=== PATIENT | female | born 1990 | race American Indian/Alaskan Native ===

== ENCOUNTER 2017-03-17 12:27 | Outpatient (CLI) | payer BC, MEDICAID ==
--- NOTE | 2017-03-17 18:25 | Ultrasound Report ---
FINAL REPORT EXAM: US OB LIMITED HISTORY: decel 40 weeks 6 days estimated gestational age TECHNIQUE: Obstetric sonographic imaging Comparison: None FINDINGS: Sonographic imaging demonstrates a single live intrauterine gestation in vertex presentation. Anterior placenta without previa documented. heart rate measures 149 beats per minute. Calculated CORNEL 14.3 centimeters. Biophysical profile score 8/8. IMPRESSION: Single live intrauterine gestation in cephalic presentation. Calculated CORNEL 14.3 centimeters. heart rate 149 beats per minute. Biophysical profile score 8/8.
--- NOTE | 2017-03-17 18:27 | Ultrasound Report ---
FINAL REPORT EXAM: US OB BPP WO NON-STRESS HISTORY: decels TECHNIQUE: Obstetrical sonographic imaging FINDINGS: Sonographic imaging demonstrates a single live intrauterine gestation in vertex presentation. Anterior placenta without previa documented. heart rate measures 149 beats per minute. Calculated CORNEL 14.3 centimeters. Biophysical profile score 8/8. IMPRESSION: Biophysical profile score 8/8.
== END 2017-03-17 15:42 | disposition home or self-care (01) ==
LOC: TRG 12:27
PROVIDERS: ATTEND Obstetrics & Gynecology
DX: O48.0 Post-term pregnancy (principal); Z3A.40 40 weeks gestation of pregnancy
CPT/HCPCS: 59025; 76815; 76819

== ENCOUNTER 2017-03-19 06:05 | Outpatient (CLI) | payer BC, MEDICAID ==
[2017-03-19 06:28] VITALS: BP 127/82
== END 2017-03-19 07:26 | disposition home or self-care (01) ==
LOC: TRG 06:05
PROVIDERS: ATTEND Obstetrics & Gynecology
DX: O46.93 Antepartum hemorrhage, unspecified, third trimester (principal); O99.333 Smoking (tobacco) complicating pregnancy, third trimester; O62.9 Abnormality of forces of labor, unspecified; O48.0 Post-term pregnancy; Z3A.40 40 weeks gestation of pregnancy

== ENCOUNTER 2017-03-19 20:38 | Inpatient (IN) | payer BC, MEDICAID ==
[2017-03-19] MEDS ORDERED: XYLOCAINE 2% INFILTRATI ONE (21:28)
[2017-03-19] MEDS ORDERED: MINERAL OIL PO PRN (21:28)
[2017-03-19] MEDS ORDERED: POLYCILLIN/NS 2 GM/100 ML 2 GM/100 ML BAG IV ONE (21:28)
[2017-03-19] MEDS ORDERED: BRETHINE SUB-Q PRN (21:28)
[2017-03-19] MEDS ORDERED: BRETHINE IVP PRN (21:28)
[2017-03-19] MEDS ORDERED: ePHEDrine SULFATE IV PRN (21:28)
--- NOTE | 2017-03-19 21:33 | History and Physical Report ---
History of Present Illness Date of examination: 03/19/17 Date of admission: 03/19/17 20:38 Chief complaint: here for IOL History of present illness: Presents for IOL for post dates. C/o having contractions. EDC Confirmation: 03/11/2017 Gestational Age: 14 3/7 weeks Past History : 1 Past Medical History: Negative Past Medical History Past Medical History Abnormal PAP: negative SANDY Exposure: negative Infertility: negative Uterine Anomaly: negative Uterine Surgery (not C/S): negative Other Gynecologic Problems: negative Medical History Comments: neg Family Hx: negative Social Hx: no e/t/d single Black Rhino Group Infection History Hx of STD: gonorrhea,chlm, trich Partner hx. of genital herpes: no Rash, Viral, or Febrile illness since last LMP? no Varicella/Chicken Pox Status: Previous Disease Genetic History Congenital Heart Defect: Mom: no Dad: no Vandana Disease: Mom: no Dad: no Thalassemia Mom: no Dad: no Neural Tube Defect Mom: no Dad: no Down's Syndrome Mom: no Dad: no Jaylan-Sachs Mom: no Dad: no Sickle Cell Disease/Trait Mom: no Dad: no Hemophilia Mom: no Dad: no Muscular Dystrophy Mom: no Dad: no Cystic Fibrosis Mom: no Dad: no Walker Chorea Mom: no Dad: no Mental Retardation Mom: no Dad: no Fragile X Mom: no Dad: no Other Genetic/Chromosomal Disorder Mom: no Dad: no Child w/other defect Mom: no Dad: no Enviromental Exposures Xray Exposure: no Medication, drug, or alcohol use since LMP: no Chemical/Other Exposure: no Exposure to Cat Liter: no Hx of Parvovirus (Fifth Disease): no Occupational Exposure to Children: none Active Medications (reviewed today): None Current Allergies (reviewed today): No known allergies Laboratory Results Past History Past Medical History: no pertinent history Past Surgical History: no surgical history 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: abnormal PAP smear - Obstetrical History Expected Date of Delivery: 03/10/17 Actual Gestation: 41 Week(s) 2 Day(s) : 1 Medications and Allergies Allergies Allergy/AdvReac Type Severity Reaction Status Date / Time No Known Allergies Allergy Unverified 03/17/17 12:43 Home Medications Medication Instructions Recorded Confirmed Last Taken Type Ferrous Sulfate [Feosol 325 MG tab] 1 tab PO TID 03/17/17 03/17/17 1 Day Ago History ~03/16/17 Pnv No.95/Ferrous Fum/Folic AC 1 tab PO DAILY 03/17/17 03/17/17 1 Day Ago History [ Vitamins Tablet] ~03/16/17 Valacyclovir HCl [Valtrex] 1 tab PO DAILY 03/17/17 03/17/17 1 Day Ago History ~03/16/17 Review of Systems All systems: negative - Vital Signs Vital signs: Vital Signs Pulse BP 77 121/80 03/19/17 20:57 03/19/17 20:57 Temp Pulse Resp BP Pulse Ox 72 121/80 99 03/19/17 21:33 03/19/17 20:57 03/19/17 21:33 - Physical Exam Lungs: Positive: Clear to auscultation, Normal air movement Genitourinary (Female): Positive: normal external genitalia, normal perenium Vulva: both: normal - Obstetrical FHR: category 1 Cervical Dilatation: 1.5 Cervical Effacement Percentage: 90 station: -1 to 0 Uterine Contraction Pattern: Regular Results Result Diagrams: 03/19/17 21:15 All other labs normal. Assessment and Plan - Patient Problems (1) 41 weeks gestation of Current Visit: Yes Status: Acute Plan to address problem: -admit -having regular contractions so will do low dose pitocin at this time -EFW 8.0lbs -serial IOL d/w pt and her mother and all questions were addressed and answered. (2) Group beta Strep positive Current Visit: Yes Status: Acute Plan to address problem: -antibx when in active labor
[2017-03-19 21:47] LABS: Hematocrit 36.5 % (30.3-42.9); Hemoglobin 12.2 gm/dl (10.1-14.3); Mean Corpuscular HGB Conc 33 % (30-34); Mean Corpuscular Hemoglobin 30 pg (28-32); Mean Corpuscular Volume 91 fl (79-97); Platelet Count 256 K/mm3 (140-440); Red Cell Distribution Width 15.1 % (13.2-15.2); White Blood Count 8.8 K/mm3 (4.5-11.0)
[2017-03-19] MEDS ORDERED: PITOCin/NS 20 UNIT/1000ML DRIP 20 UNITS/1,000 ML BAG IV SCH (22:00)
[2017-03-19] MEDS ORDERED: PITOCin/NS 30 UNIT/500ML 30 UNITS/500 ML BAG IV SCH ×2 (22:00)
[2017-03-19] MEDS: SUBLIMAZE IV PRN (22:11)
[2017-03-19] MEDS: LACTATED RINGERS 1,000 ML IV SCH (22:14)
[2017-03-20] MEDS: SUBLIMAZE IV PRN ×5 (01:25→14:09)
[2017-03-20] MEDS: POLYCILLIN/NS 1 GM/50 ML 1 GM/50 ML BAG IV SCH ×4 (01:31→21:06)
--- NOTE | 2017-03-20 06:04 | Progress Note ---
Assessment and Plan - Patient Problems (1) 41 weeks gestation of Onset Date: ~03/20/17 Current Visit: Yes Status: Acute Plan to address problem: Pt resting quietly Voicing no c/o. SVE no chg. Discussed with pt option of moving forward with Pit per protocol or taking a very short break and having diet and AM care. Pt asks for food. Will be OOB to ambulate, AM care, and diet family is going for food. P: start pitocin protocol @ 0730 Ampicillin had been started will resume dosing when in active labor, ie 4-6 cm. All questions addressed. Subjective - Subjective Date of service: 03/20/17 (pt resting Talking with aily members) Principal diagnosis: IUP @ 41w2d Patient reports: movement normal Objective - Vital Signs Vital Signs: Vital Signs - 12hr 03/19/17 03/19/17 03/19/17 20:57 21:13 21:18 Temperature Pulse Rate 77 80 68 Respiratory Rate Blood Pressure 121/80 Blood Pressure [Left] O2 Sat by Pulse 99 99 Oximetry 03/19/17 03/19/17 03/19/17 21:21 21:23 21:28 Temperature 98.3 F Pulse Rate 81 83 71 Respiratory 18 Rate Blood Pressure Blood Pressure 121/80 [Left] O2 Sat by Pulse 100 99 Oximetry 03/19/17 03/19/17 03/19/17 21:33 21:38 21:43 Temperature Pulse Rate 72 84 76 Respiratory Rate Blood Pressure Blood Pressure [Left] O2 Sat by Pulse 99 100 100 Oximetry 03/19/17 03/19/17 03/19/17 21:48 21:53 21:58 Temperature Pulse Rate 69 81 80 Respiratory Rate Blood Pressure Blood Pressure [Left] O2 Sat by Pulse 100 99 100 Oximetry 03/19/17 03/19/17 03/19/17 22:03 22:08 22:11 Temperature Pulse Rate 77 78 Respiratory 18 Rate Blood Pressure Blood Pressure [Left] O2 Sat by Pulse 100 100 Oximetry 03/19/17 03/19/17 03/19/17 22:13 22:18 22:23 Temperature Pulse Rate 78 86 73 Respiratory Rate Blood Pressure Blood Pressure [Left] O2 Sat by Pulse 100 99 97 Oximetry 03/19/17 03/19/17 03/19/17 22:28 22:33 22:38 Temperature Pulse Rate 68 76 77 Respiratory Rate Blood Pressure Blood Pressure [Left] O2 Sat by Pulse 97 98 98 Oximetry 03/19/17 03/19/17 03/19/17 22:43 22:48 22:53 Temperature Pulse Rate 80 81 74 Respiratory Rate Blood Pressure Blood Pressure [Left] O2 Sat by Pulse 98 99 99 Oximetry 03/19/17 03/19/17 03/19/17 22:58 23:03 23:08 Temperature Pulse Rate 74 77 72 Respiratory Rate Blood Pressure Blood Pressure [Left] O2 Sat by Pulse 99 100 100 Oximetry 03/19/17 03/19/17 03/19/17 23:13 23:18 23:23 Temperature Pulse Rate 75 88 76 Respiratory Rate Blood Pressure Blood Pressure [Left] O2 Sat by Pulse 100 98 98 Oximetry 03/19/17 03/19/17 03/19/17 23:28 23:33 23:38 Temperature Pulse Rate 70 81 82 Respiratory Rate Blood Pressure Blood Pressure [Left] O2 Sat by Pulse 100 100 98 Oximetry 03/19/17 03/19/17 03/19/17 23:43 23:48 23:53 Temperature Pulse Rate 84 70 68 Respiratory Rate Blood Pressure Blood Pressure [Left] O2 Sat by Pulse 99 97 99 Oximetry 03/19/17 03/19/17 03/20/17 23:55 23:58 00:03 Temperature Pulse Rate 78 73 75 Respiratory Rate Blood Pressure Blood Pressure [Left] O2 Sat by Pulse 93 100 98 Oximetry 03/20/17 03/20/17 03/20/17 00:08 00:14 00:17 Temperature Pulse Rate 74 87 72 Respiratory Rate Blood Pressure 125/75 Blood Pressure [Left] O2 Sat by Pulse 100 100 Oximetry 03/20/17 03/20/17 03/20/17 00:19 00:24 00:29 Temperature Pulse Rate 79 72 66 Respiratory Rate Blood Pressure Blood Pressure [Left] O2 Sat by Pulse 100 99 100 Oximetry 03/20/17 03/20/17 03/20/17 00:34 00:39 00:44 Temperature Pulse Rate 77 75 64 Respiratory Rate Blood Pressure Blood Pressure [Left] O2 Sat by Pulse 100 100 99 Oximetry 03/20/17 03/20/17 03/20/17 00:49 00:54 00:59 Temperature Pulse Rate 64 73 64 Respiratory Rate Blood Pressure Blood Pressure [Left] O2 Sat by Pulse 100 100 99 Oximetry 03/20/17 03/20/17 03/20/17 01:04 01:09 01:14 Temperature Pulse Rate 69 64 89 Respiratory Rate Blood Pressure Blood Pressure [Left] O2 Sat by Pulse 98 99 100 Oximetry 03/20/17 03/20/17 03/20/17 01:19 01:24 01:29 Temperature Pulse Rate 80 72 75 Respiratory Rate Blood Pressure Blood Pressure [Left] O2 Sat by Pulse 100 100 100 Oximetry 03/20/17 03/20/17 03/20/17 01:34 01:39 01:44 Temperature Pulse Rate 80 84 71 Respiratory Rate Blood Pressure Blood Pressure [Left] O2 Sat by Pulse 99 98 97 Oximetry 03/20/17 03/20/17 03/20/17 01:49 01:54 01:59 Temperature Pulse Rate 74 71 68 Respiratory Rate Blood Pressure Blood Pressure [Left] O2 Sat by Pulse 99 97 98 Oximetry 03/20/17 03/20/17 03/20/17 02:04 02:09 02:14 Temperature Pulse Rate 66 70 78 Respiratory Rate Blood Pressure Blood Pressure [Left] O2 Sat by Pulse 98 98 97 Oximetry 03/20/17 03/20/17 03/20/17 02:19 02:24 02:29 Temperature Pulse Rate 80 72 71 Respiratory Rate Blood Pressure Blood Pressure [Left] O2 Sat by Pulse 98 98 98 Oximetry 03/20/17 03/20/17 03/20/17 02:34 02:39 02:44 Temperature Pulse Rate 91 H 70 79 Respiratory Rate Blood Pressure Blood Pressure [Left] O2 Sat by Pulse 98 98 98 Oximetry 03/20/17 03/20/17 03/20/17 02:49 02:54 02:59 Temperature Pulse Rate 85 80 71 Respiratory Rate Blood Pressure Blood Pressure [Left] O2 Sat by Pulse 99 99 98 Oximetry 03/20/17 03/20/17 03/20/17 03:04 03:09 03:14 Temperature Pulse Rate 77 80 89 Respiratory Rate Blood Pressure Blood Pressure [Left] O2 Sat by Pulse 99 97 97 Oximetry 03/20/17 03/20/17 03/20/17 03:19 03:24 03:29 Temperature Pulse Rate 88 73 78 Respiratory Rate Blood Pressure Blood Pressure [Left] O2 Sat by Pulse 99 98 98 Oximetry 03/20/17 03/20/17 03/20/17 03:34 03:39 03:44 Temperature Pulse Rate 85 88 84 Respiratory Rate Blood Pressure Blood Pressure [Left] O2 Sat by Pulse 98 98 98 Oximetry 03/20/17 03/20/17 03/20/17 03:49 03:56 04:01 Temperature Pulse Rate 87 93 H 83 Respiratory Rate Blood Pressure Blood Pressure [Left] O2 Sat by Pulse 99 99 98 Oximetry 03/20/17 03/20/17 03/20/17 04:06 04:11 04:16 Temperature Pulse Rate 81 88 79 Respiratory Rate Blood Pressure Blood Pressure [Left] O2 Sat by Pulse 98 100 98 Oximetry 03/20/17 03/20/17 03/20/17 04:21 04:26 04:31 Temperature Pulse Rate 84 90 73 Respiratory Rate Blood Pressure 132/84 Blood Pressure [Left] O2 Sat by Pulse 99 100 99 Oximetry 03/20/17 03/20/17 03/20/17 04:33 04:36 04:41 Temperature 97.5 F L Pulse Rate 79 86 79 Respiratory 18 Rate Blood Pressure Blood Pressure 132/84 [Left] O2 Sat by Pulse 100 99 Oximetry 03/20/17 03/20/17 03/20/17 04:46 04:51 04:56 Temperature Pulse Rate 91 H 78 84 Respiratory Rate Blood Pressure Blood Pressure [Left] O2 Sat by Pulse 98 99 96 Oximetry 03/20/17 03/20/17 03/20/17 05:01 05:06 05:11 Temperature Pulse Rate 75 75 95 H Respiratory Rate Blood Pressure Blood Pressure [Left] O2 Sat by Pulse 98 96 97 Oximetry 03/20/17 03/20/17 03/20/17 05:16 05:21 05:26 Temperature Pulse Rate 81 67 72 Respiratory Rate Blood Pressure Blood Pressure [Left] O2 Sat by Pulse 97 98 97 Oximetry 03/20/17 03/20/17 03/20/17 05:31 05:36 05:41 Temperature Pulse Rate 71 81 72 Respiratory Rate Blood Pressure Blood Pressure [Left] O2 Sat by Pulse 97 98 97 Oximetry 03/20/17 03/20/17 03/20/17 05:45 05:46 05:51 Temperature Pulse Rate 79 85 76 Respiratory Rate Blood Pressure Blood Pressure [Left] O2 Sat by Pulse 92 99 100 Oximetry 03/20/17 05:56 Temperature Pulse Rate 83 Respiratory Rate Blood Pressure Blood Pressure [Left] O2 Sat by Pulse 98 Oximetry - Exam Breasts: deferred Cardiovascular: Regular rate Lungs: Normal air movement Abdomen: Present: normal appearance, soft. Absent: distention, tenderness Uterus: Present: normal FHR: auscultation normal, category 1 Uterine Contraction Monitor Mode: External Cervical Dilatation: 1 Cervical Effacement Percentage: 90 station: -1 Uterine Contraction Pattern: Regular Uterine Tone Measurement Phase: Resting Uterine Contraction Intensity: Mild Extremities: normal Deep Tendon Reflex Grade: Normal +2 - Labs Labs: Laboratory Results - last 24 hr 03/19/17 03/19/17 21:15 21:15 WBC 8.8 RBC 4.00 Hgb 12.2 Hct 36.5 MCV 91 MCH 30 MCHC 33 RDW 15.1 Plt Count 256 Blood Type O POSITIVE Antibody Screen Negative
[2017-03-20] MEDS: LACTATED RINGERS 1,000 ML IV SCH ×5 (08:00→20:43)
[2017-03-20] MEDS: PITOCin/NS 30 UNIT/500ML 30 UNITS/500 ML BAG IV SCH ×3 (08:52→14:43)
--- NOTE | 2017-03-20 13:32 | Progress Note ---
Assessment and Plan - Patient Problems (1) 41 weeks gestation of Onset Date: ~03/20/17 Current Visit: Yes Status: Acute (2) Spontaneous rupture of membranes Onset Date: ~03/20/17 Current Visit: Yes Status: Acute Plan to address problem: Called by RN pt reports SROM clear upon her return from voiding. SVE 2,80,-1 Internals placed Will continue pitocin Given ampicillin for GBS. Re-eval as needed. Subjective - Subjective Date of service: 03/20/17 (SROM clear fluid) Principal diagnosis: IUP @ 41w2d Patient reports: movement normal Objective - Vital Signs Vital Signs: Vital Signs - 12hr 03/20/17 03/20/17 03/20/17 01:34 01:39 01:44 Temperature Pulse Rate 80 84 71 Respiratory Rate Blood Pressure Blood Pressure [Left] O2 Sat by Pulse 99 98 97 Oximetry 03/20/17 03/20/17 03/20/17 01:49 01:54 01:59 Temperature Pulse Rate 74 71 68 Respiratory Rate Blood Pressure Blood Pressure [Left] O2 Sat by Pulse 99 97 98 Oximetry 03/20/17 03/20/17 03/20/17 02:04 02:09 02:14 Temperature Pulse Rate 66 70 78 Respiratory Rate Blood Pressure Blood Pressure [Left] O2 Sat by Pulse 98 98 97 Oximetry 03/20/17 03/20/17 03/20/17 02:19 02:24 02:29 Temperature Pulse Rate 80 72 71 Respiratory Rate Blood Pressure Blood Pressure [Left] O2 Sat by Pulse 98 98 98 Oximetry 03/20/17 03/20/17 03/20/17 02:34 02:39 02:44 Temperature Pulse Rate 91 H 70 79 Respiratory Rate Blood Pressure Blood Pressure [Left] O2 Sat by Pulse 98 98 98 Oximetry 03/20/17 03/20/17 03/20/17 02:49 02:54 02:59 Temperature Pulse Rate 85 80 71 Respiratory Rate Blood Pressure Blood Pressure [Left] O2 Sat by Pulse 99 99 98 Oximetry 03/20/17 03/20/17 03/20/17 03:04 03:09 03:14 Temperature Pulse Rate 77 80 89 Respiratory Rate Blood Pressure Blood Pressure [Left] O2 Sat by Pulse 99 97 97 Oximetry 03/20/17 03/20/17 03/20/17 03:19 03:24 03:29 Temperature Pulse Rate 88 73 78 Respiratory Rate Blood Pressure Blood Pressure [Left] O2 Sat by Pulse 99 98 98 Oximetry 03/20/17 03/20/17 03/20/17 03:34 03:39 03:44 Temperature Pulse Rate 85 88 84 Respiratory Rate Blood Pressure Blood Pressure [Left] O2 Sat by Pulse 98 98 98 Oximetry 03/20/17 03/20/17 03/20/17 03:49 03:56 04:01 Temperature Pulse Rate 87 93 H 83 Respiratory Rate Blood Pressure Blood Pressure [Left] O2 Sat by Pulse 99 99 98 Oximetry 03/20/17 03/20/17 03/20/17 04:06 04:11 04:16 Temperature Pulse Rate 81 88 79 Respiratory Rate Blood Pressure Blood Pressure [Left] O2 Sat by Pulse 98 100 98 Oximetry 03/20/17 03/20/17 03/20/17 04:21 04:26 04:31 Temperature Pulse Rate 84 90 73 Respiratory Rate Blood Pressure 132/84 Blood Pressure [Left] O2 Sat by Pulse 99 100 99 Oximetry 03/20/17 03/20/17 03/20/17 04:33 04:36 04:41 Temperature 97.5 F L Pulse Rate 79 86 79 Respiratory 18 Rate Blood Pressure Blood Pressure 132/84 [Left] O2 Sat by Pulse 100 99 Oximetry 03/20/17 03/20/17 03/20/17 04:46 04:51 04:56 Temperature Pulse Rate 91 H 78 84 Respiratory Rate Blood Pressure Blood Pressure [Left] O2 Sat by Pulse 98 99 96 Oximetry 03/20/17 03/20/17 03/20/17 05:01 05:06 05:11 Temperature Pulse Rate 75 75 95 H Respiratory Rate Blood Pressure Blood Pressure [Left] O2 Sat by Pulse 98 96 97 Oximetry 03/20/17 03/20/17 03/20/17 05:16 05:21 05:26 Temperature Pulse Rate 81 67 72 Respiratory Rate Blood Pressure Blood Pressure [Left] O2 Sat by Pulse 97 98 97 Oximetry 03/20/17 03/20/17 03/20/17 05:31 05:36 05:41 Temperature Pulse Rate 71 81 72 Respiratory Rate Blood Pressure Blood Pressure [Left] O2 Sat by Pulse 97 98 97 Oximetry 03/20/17 03/20/17 03/20/17 05:45 05:46 05:51 Temperature Pulse Rate 79 85 76 Respiratory Rate Blood Pressure Blood Pressure [Left] O2 Sat by Pulse 92 99 100 Oximetry 03/20/17 03/20/17 03/20/17 05:56 07:41 07:43 Temperature 97.3 F L Pulse Rate 83 95 H 86 Respiratory 18 Rate Blood Pressure 122/69 Blood Pressure 122/69 [Left] O2 Sat by Pulse 98 99 97 Oximetry 03/20/17 03/20/17 03/20/17 07:48 07:53 08:57 Temperature Pulse Rate 79 84 81 Respiratory Rate Blood Pressure 119/67 Blood Pressure [Left] O2 Sat by Pulse 98 97 Oximetry 03/20/17 03/20/17 03/20/17 12:01 12:04 12:06 Temperature Pulse Rate 71 86 Respiratory 20 Rate Blood Pressure 133/90 Blood Pressure [Left] O2 Sat by Pulse 98 Oximetry 03/20/17 03/20/17 03/20/17 12:09 12:14 12:19 Temperature Pulse Rate 74 63 76 Respiratory Rate Blood Pressure Blood Pressure [Left] O2 Sat by Pulse 98 99 98 Oximetry 03/20/17 03/20/17 03/20/17 12:24 12:29 12:34 Temperature Pulse Rate 73 73 65 Respiratory Rate Blood Pressure Blood Pressure [Left] O2 Sat by Pulse 98 99 98 Oximetry 03/20/17 03/20/17 03/20/17 12:39 12:44 12:49 Temperature Pulse Rate 77 80 66 Respiratory Rate Blood Pressure Blood Pressure [Left] O2 Sat by Pulse 98 98 97 Oximetry 03/20/17 03/20/17 03/20/17 12:54 12:59 13:04 Temperature Pulse Rate 68 68 67 Respiratory Rate Blood Pressure Blood Pressure [Left] O2 Sat by Pulse 98 98 97 Oximetry 03/20/17 03/20/17 03/20/17 13:09 13:14 13:23 Temperature Pulse Rate 71 85 81 Respiratory Rate Blood Pressure Blood Pressure [Left] O2 Sat by Pulse 98 98 100 Oximetry 03/20/17 13:28 Temperature Pulse Rate 79 Respiratory Rate Blood Pressure Blood Pressure [Left] O2 Sat by Pulse 100 Oximetry - Exam Breasts: deferred Cardiovascular: Regular rate Lungs: Normal air movement Abdomen: Present: normal appearance, soft. Absent: distention, tenderness Uterus: Present: normal FHR: auscultation normal, category 1 Uterine Contraction Monitor Mode: Internal Cervical Dilatation: 2 (ISE/IUPC placed) Cervical Effacement Percentage: 80 station: -1 Uterine Contraction Pattern: Regular Uterine Contraction Intensity: Moderate Extremities: normal Deep Tendon Reflex Grade: Normal +2 - Labs Labs: Laboratory Results - last 24 hr 03/19/17 03/19/17 03/19/17 21:15 21:15 21:15 WBC 8.8 RBC 4.00 Hgb 12.2 Hct 36.5 MCV 91 MCH 30 MCHC 33 RDW 15.1 Plt Count 256 RPR Nonreactive Blood Type O POSITIVE Antibody Screen Negative
[2017-03-20] MEDS ORDERED: NARCAN 2 MG/2 ML IV PRN (15:55)
[2017-03-20] MEDS ORDERED: ePHEDrine SULFATE IV PRN (15:55)
--- NOTE | 2017-03-20 15:55 | Anesthesia Consultation ---
Anesthesia Consult and Med Hx Date of service: 03/20/17 - Airway Anesthetic Teeth Evaluation: Good ROM Head & Neck: Adequate Mental/Hyoid Distance: Adequate Mallampati Class: Class II Intubation Access Assessment: Probably Good - Pre-Operative Health Status ASA Pre-Surgery Classification: ASA2 Proposed Anesthetic Plan: Epidural, Spinal - Pulmonary Hx Smoking: Yes (quit 2016) Hx Asthma: No COPD: No Hx Pneumonia: No - Cardiovascular System Hx Hypertension: No - Central Nervous System Hx Seizures: No Hx Psychiatric Problems: No - Endocrine Hx Renal Disease: No Hx End Stage Renal Disease: No Hx Hypothyroidism: No Hx Hyperthyroidism: No - Hematic Hx Anemia: No Hx Sickle Cell Disease: No - Other Systems Hx Alcohol Use: Yes
[2017-03-20] MEDS ORDERED: fentaNYL-BUPIV 2 MCG/ML-0.125% 200 MCG/100 ML BAG EPIDURAL SCH ×2 (16:00→23:45)
[2017-03-20] MEDS ORDERED: fentaNYL-BUPIV 2 MCG/ML-0.125% 200 MCG/100 ML BAG EPIDURAL ONE (16:00)
[2017-03-20] MEDS ORDERED: ZOFRAN ONE (16:34)
[2017-03-20] MEDS ORDERED: CERVIDIL VG ONE (19:00)
--- NOTE | 2017-03-20 19:01 | Event Note ---
Date: 03/20/17 Patient resting comfortably after epidural. Discussed with the patient criteria for operative delivery. Patient now with him Pitocin the increasing per protocol and we will try to get her contractions adequate and continue monitoring. All patient's questions answered
[2017-03-20] MEDS ORDERED: ANCEF/STERILE WATER 2 GM/20 ML 2 GM/20 ML SYRINGE IV NR (22:00)
[2017-03-20] MEDS ORDERED: BICITRA PO ONE (22:00)
[2017-03-20] MEDS ORDERED: LACTATED RINGERS 1,000 ML IV SCH (22:00)
[2017-03-20] MEDS ORDERED: REGLAN IV ONE (22:00)
[2017-03-20] MEDS ORDERED: PEPCID IV ONE ×2 (22:00→22:05)
[2017-03-20] MEDS ORDERED: BICITRA ONE (22:05)
[2017-03-20] MEDS ORDERED: REGLAN ONE (22:05)
--- NOTE | 2017-03-20 22:07 | Event Note ---
Date: 03/20/17 Called to see patient secondary to repeated the deep decelerations. Patient for the second time the parents deep decelerations and prolonged decelerations restarted the Pitocin. Patient cervix is 6 cm. Due to nonreassuring heart tracings and inability to continue Pitocin and remote from vaginal delivery section is indicated. Discussed indication for operative delivery with the patient and family.Patient informed the risks of the surgery include bleeding possibly bleeding heavy enough to require blood transfusion, infection possible damage to bowel bladder ureter. All questions answered. Patient agrees to proceed
[2017-03-20] MEDS ORDERED: XYLOCAINE MPF 2% ONE ×4 (22:49)
[2017-03-20] MEDS ORDERED: MORPHINE ONE ×2 (22:50→22:52)
[2017-03-20] MEDS ORDERED: WATER FOR IRRIG STERILE IR ONE (22:55)
[2017-03-20] MEDS ORDERED: NACL 0.9% IR ONE (22:55)
[2017-03-20] MEDS ORDERED: TORADOL ONE (23:02)
[2017-03-20] MEDS ORDERED: DECADRON ONE (23:11)
[2017-03-20] MEDS ORDERED: SODIUM CHLORIDE FLUSH SYRINGE 10 ML IV NR (23:45)
--- NOTE | 2017-03-20 23:55 | Operative Report ---
Operative Report Operative Report: Date of procedure: 03/20/2017 Pre-operative diagnosis: Uterine at 41 weeks, nonreassuring heart tracing mode from vaginal delivery Post-operative diagnosis: Same plus uterine fibroid Procedure name(s): Primary low transverse section Surgeon: Dimas Smith MD Loader Operator Supervisor: Anesthesia: Epidural EBL: 600 mL Complications: None Findings: Patient with normal tubes and ovaries bilaterally had a posterior myoma near fundus approximately 3 and half centimeters in diameter. Female infant weight 8 lbs. 7 oz. Apgars 8 at 1 minute and 9 at 5 minutes Specimen(s): None Procedure: The patient was brought to the operating room. Epidural dosed adequate level. She was then placed in left lateral tilt. Prepped and draped in the usual sterile manner. After testing for adequate anesthesia level, a Pfannenstiel incision was made. This incision was taken down to the fascia. The fascia was then nicked in the midline. This incision was extended out laterally with Gonzalez scissors. The fascia was then sharply and bluntly from the underlying rectus muscles. The rectus muscles were bluntly and sharply . The peritoneum was then entered with the dye machine operator's fingers. This incision was spread vertically with care not to damage the bladder below. The bladder flap was then formed sharply and bluntly with Metzenbaum scissors. The Randal self-retaining tractor was then placed without any difficulty. A transverse incision was made in lower uterine segment. This incision was extended laterally with the operators fingers. The amniotic sac was then entered bluntly with the dye machine operator's fingers. The infant was delivered from the vertex position. Bulb suction on the mother's abdomen. Cord was double clamped and cut. The was then passed to the nursery personnel who were in attendance. The above scores were given by the nursery personnel. The placenta was then bluntly removed. The uterus was then externalized and wiped clean the remaining products. The uterine incision was closed in layers. The first incision was closed in a locking manner using 0 Vicryl. This was followed by imbricating stitch also with 0 Vicryl. This closure was hemostatic. The bladder flap was copiously irrigated and found to be hemostatic. The pelvis was copiously irrigated and found to be hemostatic. The uterus was then placed back to the patient's abdomen. The retractors were removed. The rectus muscles were inspected and found to be hemostatic. The fascia was then closed in a running manner using 0 Vicryl. This incision was hemostatic irrigation Bovie. The skin was reapproximated with 4-0 Vicryl subcuticularly. The patient tolerated procedure well. Her urine was clear. The infant was admitted to the well baby nursery. The patient was accompanied to recovery room in good condition. Instrument count correct 3.
[2017-03-20] MEDS ORDERED: PHENERGAN PR PRN (23:58)
[2017-03-20] MEDS ORDERED: MORPHINE IV PRN (23:58)
[2017-03-20] MEDS ORDERED: PHENERGAN PO PRN (23:58)
[2017-03-20] MEDS ORDERED: NARCAN 0.4 MG/1 ML IV PRN (23:58)
[2017-03-20] MEDS ORDERED: ZOFRAN IV PRN (23:58)
--- NOTE | 2017-03-20 23:58 | Post Anesthesia Evaluation ---
- Post Anesthesia Evaluation Patient Participated: Yes Airway Patent: Yes Stable Respiratory Function: Yes Nausea/Vomiting: No Temp > 96.8F: Yes Pain Manageable: Yes Adequeate Hydration: Yes Anesthesia Complications: No
[2017-03-21] MEDS ORDERED: TUCKS PAD TP PRN (01:20)
[2017-03-21] MEDS ORDERED: SODIUM CHLORIDE FLUSH SYRINGE 10 ML IV NR (01:20)
[2017-03-21] MEDS ORDERED: MYLICON PO PRN (01:20)
[2017-03-21] MEDS ORDERED: ZOFRAN IV PRN (01:20)
[2017-03-21] MEDS ORDERED: D5LR 1,000 ML IV SCH (01:20)
[2017-03-21] MEDS ORDERED: PITOCin/NS 20 UNIT/1000ML DRIP 20 UNITS/1,000 ML BAG IV SCH (01:20)
[2017-03-21] MEDS ORDERED: NARCAN 0.4 MG/1 ML IV PRN (01:20)
[2017-03-21] MEDS ORDERED: MILK OF MAGNESIA PO PRN (01:20)
[2017-03-21] MEDS ORDERED: LANSINOH TP PRN (01:20)
[2017-03-21] MEDS ORDERED: ANCEF/NS 1 GM/50 ML 1 GM/50 ML BAG IV SCH (01:20)
[2017-03-21] MEDS: TORADOL IV SCH ×3 (02:52→16:21)
[2017-03-21] MEDS: ceFAZolin 1 GM in NACL 0.9% 20 ML IV SCH ×2 (05:33→15:34)
[2017-03-21] MEDS ORDERED: BOOSTRIX IM ONE (06:00)
--- NOTE | 2017-03-21 08:08 | Progress Note ---
Assessment and Plan patient doing well <12h postop; lochia small, dressing D&I, clear yellow urine draining to BSB, VSSAF (b/p 130's/80's), postop H&H due @ 1200. Continue postop pathway. Encouraged on demand. - Patient Problems (1) delivery delivered Current Visit: Yes Status: Acute Subjective - Subjective Date of service: 03/21/17 Principal diagnosis: postop day #1 s/p primary c/s Patient reports: pain well controlled, no flatus, no nauseated [place]: doing well, nursing well Objective - Vital Signs Latest vital signs: Vital Signs Temp Pulse Resp BP BP Pulse Ox 03/21/17 04:10 98.1 F 102 H 20 135/82 03/21/17 01:45 97.9 F 79 18 134/83 98 03/21/17 01:00 83 21 135/77 96 03/21/17 00:45 80 30 H 130/75 97 03/21/17 00:30 80 22 131/84 99 03/21/17 00:15 79 17 135/80 100 03/21/17 00:00 75 19 137/77 99 03/20/17 23:55 73 19 134/79 99 03/20/17 23:52 98.7 F 76 19 134/80 99 03/20/17 22:16 100 H 100 03/20/17 22:11 86 100 03/20/17 22:06 85 100 03/20/17 22:01 86 100 03/20/17 21:56 80 100 03/20/17 21:55 80 130/77 03/20/17 21:51 71 100 03/20/17 21:46 75 100 03/20/17 21:41 74 100 03/20/17 21:36 80 100 03/20/17 21:31 80 100 03/20/17 21:26 67 100 03/20/17 21:25 65 131/69 03/20/17 21:21 85 100 03/20/17 21:16 86 100 03/20/17 21:11 77 100 03/20/17 21:06 72 100 03/20/17 21:01 86 100 03/20/17 20:56 73 100 03/20/17 20:54 76 136/78 03/20/17 20:51 99 H 100 03/20/17 20:46 83 100 03/20/17 20:41 89 100 03/20/17 20:36 71 100 03/20/17 20:31 73 100 03/20/17 20:26 77 100 03/20/17 20:25 71 121/65 03/20/17 20:21 70 100 03/20/17 20:16 71 100 03/20/17 20:11 70 100 03/20/17 20:06 86 99 03/20/17 20:01 76 100 03/20/17 19:56 86 100 03/20/17 19:54 74 116/60 03/20/17 19:51 91 H 100 03/20/17 19:47 68 118/61 03/20/17 19:46 71 100 03/20/17 19:42 98.6 F 78 18 118/61 100 03/20/17 19:41 75 100 03/20/17 19:36 69 100 03/20/17 19:31 69 100 03/20/17 19:26 71 100 03/20/17 19:24 67 129/72 03/20/17 19:21 70 100 03/20/17 19:16 69 100 03/20/17 19:11 71 100 03/20/17 19:06 68 100 03/20/17 19:01 69 100 03/20/17 18:56 85 100 03/20/17 18:55 75 124/70 03/20/17 18:51 77 100 03/20/17 18:46 67 100 03/20/17 18:43 99.1 F 03/20/17 18:41 91 H 100 03/20/17 18:36 83 100 03/20/17 18:31 82 100 03/20/17 18:26 73 100 03/20/17 18:24 77 128/73 03/20/17 18:21 74 100 03/20/17 18:16 77 99 03/20/17 18:11 71 99 03/20/17 18:06 70 99 03/20/17 18:01 70 100 03/20/17 17:56 77 100 03/20/17 17:55 70 136/81 03/20/17 17:51 71 98 03/20/17 17:46 75 100 03/20/17 17:41 71 99 03/20/17 17:36 70 100 03/20/17 17:31 71 100 03/20/17 17:26 90 100 03/20/17 17:24 70 145/82 03/20/17 17:22 73 140/80 03/20/17 17:21 78 100 03/20/17 17:20 74 138/80 03/20/17 17:18 84 142/81 03/20/17 17:16 73 143/82 98 03/20/17 17:14 67 148/78 03/20/17 17:12 68 146/79 03/20/17 17:11 70 100 03/20/17 17:10 68 148/82 03/20/17 17:08 86 147/85 03/20/17 17:06 89 145/87 100 03/20/17 17:04 81 142/83 03/20/17 17:02 72 135/79 03/20/17 17:01 71 100 03/20/17 17:00 71 139/80 03/20/17 16:58 69 140/77 03/20/17 16:56 71 139/78 99 03/20/17 16:54 74 132/76 03/20/17 16:52 75 130/75 03/20/17 16:51 91 H 100 03/20/17 16:50 72 132/78 03/20/17 16:48 70 138/74 03/20/17 16:46 71 136/77 99 03/20/17 16:44 71 147/76 03/20/17 16:42 76 144/78 03/20/17 16:41 82 100 03/20/17 16:40 80 143/82 03/20/17 16:38 86 145/84 03/20/17 16:36 82 147/83 100 03/20/17 16:34 93 H 146/86 03/20/17 16:32 83 141/87 03/20/17 16:31 94 H 100 03/20/17 16:30 98 H 141/88 03/20/17 16:28 104 H 141/92 03/20/17 16:26 107 H 145/92 99 03/20/17 16:24 81 138/90 03/20/17 16:22 87 127/68 03/20/17 16:21 73 100 12/04/17 16:20 81 145/85 03/20/17 16:18 77 141/81 03/20/17 16:16 74 137/80 100 03/20/17 16:14 74 133/79 03/20/17 16:12 73 137/78 03/20/17 16:11 80 100 03/20/17 16:10 68 131/78 03/20/17 16:08 84 134/77 03/20/17 16:06 76 133/77 100 03/20/17 16:04 68 129/75 03/20/17 16:02 67 130/79 03/20/17 16:01 72 99 03/20/17 16:00 73 131/83 03/20/17 15:58 81 132/84 03/20/17 15:57 90 137/78 03/20/17 15:56 87 100 03/20/17 15:54 50 L 72 L 03/20/17 15:52 90 145/80 03/20/17 15:51 89 100 03/20/17 15:50 83 140/78 03/20/17 15:44 94 H 100 03/20/17 15:38 83 100 03/20/17 15:33 85 99 03/20/17 15:28 75 97 03/20/17 15:23 91 H 100 03/20/17 15:18 96 H 94 03/20/17 15:17 80 94 03/20/17 15:13 92 H 95 03/20/17 15:12 75 94 03/20/17 15:08 83 100 03/20/17 15:03 77 98 03/20/17 14:58 90 97 03/20/17 14:53 93 H 100 03/20/17 14:50 72 88 03/20/17 14:48 70 97 03/20/17 14:43 67 94 03/20/17 14:38 74 94 03/20/17 14:37 71 93 03/20/17 14:33 70 95 03/20/17 14:32 74 93 03/20/17 14:30 73 140/80 03/20/17 14:28 81 99 03/20/17 14:25 69 94 03/20/17 14:23 67 99 03/20/17 14:18 68 100 03/20/17 14:13 89 100 03/20/17 14:09 22 03/20/17 14:08 92 H 100 03/20/17 14:03 110 H 99 03/20/17 13:58 78 100 03/20/17 13:53 78 100 03/20/17 13:48 81 99 03/20/17 13:43 91 H 98 03/20/17 13:38 89 100 03/20/17 13:33 115 H 100 03/20/17 13:28 79 100 03/20/17 13:23 81 100 03/20/17 13:14 85 98 03/20/17 13:09 71 98 03/20/17 13:04 67 97 03/20/17 12:59 68 98 03/20/17 12:54 68 98 03/20/17 12:49 66 97 03/20/17 12:44 80 98 03/20/17 12:39 77 98 03/20/17 12:34 65 98 03/20/17 12:29 73 99 03/20/17 12:24 73 98 03/20/17 12:19 76 98 03/20/17 12:14 63 99 03/20/17 12:09 74 98 03/20/17 12:06 86 133/90 03/20/17 12:04 71 98 03/20/17 12:01 20 03/20/17 08:57 81 119/67 Intake and Output 03/20/17 03/21/17 03/21/17 23:59 07:59 15:59 Intake Total 1450.684 240 Output Total 300 500 Balance 1150.684 -260 Intake: IV 1450.684 Lactated Ringers 1,000 ml 614.584 @ 125 mls/hr IV DIRECT [facility] Rx#:[id number] PITOCin/NS 30 UNIT/500ML 86.1 30 units In 500 ml @ 4 mls/hr IV Q30MIN [facility] Rx#: [id number] POLYCILLIN/NS 1 GM/50 ML 50 1 gm In 50 ml @ 100 mls/ hr IV Q4HR [facility] Rx#: [id number] Oral 240 Output: Urine 300 500 Indwelling Catheter 200 Uretheral (Lee) 300 Other: Total, Intake Amount 240 Total, Output Amount 200 Estimated Blood Loss 600 - Exam Breasts: Present: normal, Cardiovascular: Present: Regular rate Lungs: Present: Clear to auscultation, Normal air movement Abdomen: Present: normal appearance, soft Vulva: both: normal Uterus: Present: normal, firm, fundal height at umbilicus Extremities: Present: normal Deep Tendon Reflex Grade: Normal +2 Incision: Present: normal, dry, dressed
[2017-03-21] MEDS: FEOSOL PO SCH (10:00)
[2017-03-21] MEDS: PRENATAL VITAMIN PO SCH (10:00)
[2017-03-21 12:40] LABS: Hematocrit 29.4 % (30.3-42.9); Hemoglobin 9.5 gm/dl (10.1-14.3)
[2017-03-21] MEDS: NORCO 5/325 PO PRN (14:44)
[2017-03-21] MEDS: MOTRIN PO PRN ×2 (14:45→20:29)
--- NOTE | 2017-03-21 15:42 | Query-Anemia ---
Sanjana Avalos Date:__03/21/17 [employer]/CDS:[place] Phone#:_[phone] Exercise your independent professional judgment when responding to this query. Questions asked do not imply a particular answer is desired or expected. We greatly appreciate your clarification on this issue. Clinical Documentation States: 26 y/o woman was admitted on 03/19/17. Operative Report(Dr. Smith on 03/20/17) states" Pre-operative diagnosis: Uterine at 41 weeks, nonreassuring heart tracing mode from vaginal delivery Post-operative diagnosis: Same plus uterine fibroid Procedure name(s): Primary low transverse section EBL: 600 mL " Clinical Findings Show: 03/19/17 03/21/17 Hgb 12.2 9.5 Hct 36.5 29.4 Etiology: [ x] Anemia due to acute blood loss [ ] Anemia due to chronic blood loss [ ] Anemia secondary to ESRD [ ] Anemia secondary to neoplastic disease [ ] Iron deficiency anemia due to malabsorption [ ] GI Bleed from: [ ] Anemia of chronic disease ,Other: [ ] Precipitous Drop in Hemoglobin [ ] Precipitous Drop in Hematocrit [ ] Other: [ ] Unable to determine [ ] Comment/Explanation: Present on Admission: [ ] Yes (Y) [ ] Clinically undeterminable (W) [x ] No (N) Please also document response in your Progress Notes and/or Discharge Summary and indicate if the condition was present on admission. FLORENTIN
[2017-03-22] MEDS: TORADOL IV SCH (06:42)
[2017-03-22] MEDS: NORCO 5/325 PO PRN (07:36)
[2017-03-22] MEDS: MOTRIN PO PRN ×2 (07:36→20:44)
--- NOTE | 2017-03-22 08:42 | Progress Note ---
Assessment and Plan Patient doing well, reports feeling pain around incision especially during movement. Discussed use of PO medications as needed. Lochia scant, VSSAF, well. H& stable, no s/s anemia. Continue postop pathway and anticipate d/c home tomorrow. - Patient Problems (1) delivery delivered Current Visit: Yes Status: Acute Subjective - Subjective Date of service: 03/22/17 Principal diagnosis: postop day #2 s/p primary c/s Patient reports: appetite normal, voiding normally, pain well controlled, flatus , ambulating normally, no dizzy ambulation, no nauseated [place]: doing well, nursing well Objective - Vital Signs Latest vital signs: Vital Signs Temp Pulse Resp BP 03/22/17 00:40 98.6 F 76 16 101/71 03/21/17 16:40 97.7 F 68 18 116/78 03/21/17 12:20 98.3 F 78 18 Intake and Output 03/21/17 03/22/17 03/22/17 23:59 07:59 15:59 Intake Total 320 Output Total 1400 Balance -1080 Intake: Oral 320 Output: Urine 1400 Void 1400 Other: Total, Intake Amount 200 Total, Output Amount 700 # Voids Void 2 - Exam Breasts: Present: normal, Cardiovascular: Present: Regular rate Lungs: Present: Clear to auscultation, Normal air movement Abdomen: Present: normal appearance, soft, normal bowel sounds Vulva: both: normal Uterus: Present: normal, firm, fundal height at umbilicus Extremities: Present: normal Deep Tendon Reflex Grade: Normal +2 Incision: Present: normal, dry, intact - Labs Labs: Abnormal lab results 03/21/17 Range/Units 12:13 Hgb 9.5 L (10.1-14.3) gm/dl Hct 29.4 L D (30.3-42.9) %
[2017-03-22] MEDS: PRENATAL VITAMIN PO SCH (10:00)
[2017-03-22] MEDS: FEOSOL PO SCH (10:00)
--- NOTE | 2017-03-23 07:40 | Discharge Summary ---
Providers - Providers Date of Admission: 03/19/17 20:38 Date of discharge: 03/23/17 (pt agrees with d/c) Attending physician: CAT DEL VALLE 03/21/17 01:20 Consult to Gantry Rigger [CONS] Routine Reason For Exam: Primary care physician: CAT DEL VALLE Hospitalization Reason for admission: induction of labor Delivery: Procedure: primary low transverse Episiotomy: none Laceration: none Incision: normal, dry, intact Other procedures: none complications: none Discharge diagnosis: IUP at term delivered baby: female Hospital course: uncomplicated section Pt Ambulating w/o complication, no c/o voiced VSS FF below umb Lochia scant Incision D&I H&H stable Pt asymptomatic Doing well s/p c/s P: d/c today with instructions RTO 1 week postop care RX provided. Condition at discharge: Fair Disposition: DC-01 TO HOME OR SELFCARE - Discharge Diagnoses (1) delivery delivered Status: Acute Comment: rto 1 week postop care Plan - Discharge Medications Prescriptions: Ferrous Sulfate [Feosol 325 MG tab] 325 mg PO BID #60 tablet Ibuprofen [Motrin 800 MG tab] 800 mg PO Q6H PRN #30 tablet PRN Reason: Pain oxyCODONE /ACETAMINOPHEN [Percocet 5/325 mg] 1 - 2 tab PO Q4H PRN #30 tablet PRN Reason: Pain, Moderate - Provider Discharge Summary Activity: routine, no sex for 6 weeks, no heavy lifting 4 weeks, no strenuous exercise Diet: routine Instructions: routine Additional instructions: [] Smoking cessation referral if applicable(refer to patient education folder for contact #) [] Refer to [facility] Booklet Call your doctor immediately for: * Fever > 100.5 * Heavy vaginal bleeding ( >1 pad per hour) * Severe persistent headache * Shortness of breath * Reddened, hot, painful area to leg or breast * Drainage or odor from incision. * Keep incision clean and dry at all times and follow doctor's instructions regarding bathing/showering - Follow up plan Follow up: CAT DEL VALLE MD [Primary Care Provider] - 7 Days (Congratulations and Merry Lorida! Please call [phone] to schedule your postoperative visit in 1 week. Take medications as prescribed. Call with any concerns. )
[2017-03-23] MEDS: FEOSOL PO SCH (11:41)
[2017-03-23] MEDS: PRENATAL VITAMIN PO SCH (11:41)
[2017-03-23] MEDS: MOTRIN PO PRN (11:41)
[2017-03-23 12:53] VITALS: BP 141/85
== END 2017-03-23 13:15 | disposition home or self-care (01) | DRG 765 ==
LOC: LD 20:38 → OB 03-21 01:19
PROVIDERS: ADMIT Obstetrics & Gynecology; ATTEND Obstetrics & Gynecology
PROC: 10D00Z1 Extraction of Products of Conception, Low, Open Approach (ICD-10-PCS; principal; 2017-03-20)
PROC: 3E0234Z Introduction of Serum, Toxoid and Vaccine into Muscle, Percutaneous Approach (ICD-10-PCS; 2017-03-21)
DX: O76 Abnormality in fetal heart rate and rhythm complicating labor and delivery (principal); D62 Acute posthemorrhagic anemia; O75.0 Maternal distress during labor and delivery; O48.0 Post-term pregnancy; O90.81 Anemia of the puerperium; O99.824 Streptococcus B carrier state complicating childbirth; Z3A.41 41 weeks gestation of pregnancy; Z37.0 Single live birth; Z23 Encounter for immunization; Z87.891 Personal history of nicotine dependence
CPT/HCPCS: 36415; 85014; 85018; 85027; 86592; 86850; 86900; 86901; 90471; 90715; 99211; A6250; G0463; J0290; J0690; J1100; J1885; J2270; J2405; J2590; J2765; J3010; J7120; J7121